=== PATIENT | female | born 1965 | race Caucasian/White ===

== ENCOUNTER → 2018-10-31 | Outpatient (CLI) | payer OTHER, SELFPAY | END | disposition home or self-care (01) | LOC: LABSPEC 15:37 | PROVIDERS: Referring Provider Otolaryngology; Visit Provider Otolaryngology | DX: J02.9 Acute pharyngitis, unspecified (principal) | CPT/HCPCS: 87070 ==

== ENCOUNTER → 2019-09-27 08:27 | Outpatient (CLI) | payer OTHER, SELFPAY ==
--- NOTE | 2019-09-27 08:40 | EKG12_ITS ---
Test Reason : PRE OP Blood Pressure : / mmHG Vent. Rate : 063 BPM Atrial Rate : 063 BPM P-R Int : 140 ms QRS Dur : 086 ms QT Int : 432 ms P-R-T Axes : -14 029 051 degrees QTc Int : 442 ms Normal sinus rhythm Normal ECG When compared with ECG of 11-JUL-2003 16:32, No significant change was found Confirmed by DANIKA GUO, ESTIVEN ([id number]), insurance examiner MARIAN CERDA ([id number]) on 10/01/2019 9:00:48 AM Referred By: Patricia Patel Confirmed By:ESTIVEN GARNICA MD
[2019-09-27 09:09] LABS: Absolute Lymphocyte Count 2.36 X10^3/uL (0.83-4.51); Absolute Neutrophil Count 4.4 X10^3/uL (2.0-7.7); Basophil# 0.05 X10^3/uL; Basophil% 0.7 % (0-1); Eosinophil# 0.18 X10^3/uL; Eosinophils% 2.4 % (0-5); Hematocrit 39.8 % (37-47); Hemoglobin 12.5 g/dL (12.0-15.0); Lymphocyte # 2.36 X10^3/ul (4.0); Lymphocyte % 31.4 % (19-41); Mean Corp Hgb Conc 31.4 g/dL (32-36); Mean Corpuscular Hgb 27.3 pg (27.0-32.0); Mean Corpuscular Volume 86.9 fL (81-99); Mean Platelet Vol. 11.5 fl (6.2-12.0); Monocyte# 0.46 X10^3/uL; Monocyte% 6.1 % (0-10); NRBC Flagged by Analyzer 0 % (0-5); Neutrophil # 4.44 X10^3/uL (2.7-7.7); Platelet Count 291 K/mm3 (150-450); RBC Distribution Width CV 13.1 % (11.6-14.6); Red Blood Count 4.58 M/mm3 (4.2-5.4); White Blood Count 7.5 K/mm3 (4.4-11.0)
[2019-09-27 09:43] LABS: Anion Gap 7 (5-15); BUN 17 mg/dL (7-18); Chloride 106 mmol/L (98-107); Creatinine, Serum 0.65 mg/dL (0.55-1.02); EST Glomerular Filtration Rate 100 mL/min (>60); Est Glom Filt Rate - Afr Amer 121 mL/min (>60); Glucose 101 mg/dL (74-106); Potassium 4.3 mmol/L (3.5-5.1); Sodium Level 138 mmol/L (136-145)
== END ==
PROVIDERS: Referring Provider Registered Nurse; Visit Provider Registered Nurse
DX: Z01.818 Encounter for other preprocedural examination (principal)
CPT/HCPCS: 36415; 80048; 85025; 93005

== ENCOUNTER → 2019-10-01 | Outpatient (CLI) | payer OTHER, SELFPAY | END | disposition home or self-care (01) | LOC: LABSPEC 11:38 | PROVIDERS: Referring Provider Specialist; Visit Provider Specialist | DX: Z11.59 Encounter for screening for other viral diseases (principal) | CPT/HCPCS: 87635; G2023; U0003 ==

== ENCOUNTER → 2021-03-04 15:19 | Outpatient (CLI) | payer OTHER, SELFPAY | PROVIDERS: Referring Provider Otolaryngology; Visit Provider Otolaryngology | DX: K12.1 Other forms of stomatitis (principal) | CPT/HCPCS: 87070 ==

== ENCOUNTER 2023-06-12 09:13 | Day surgery (SDC) | payer OTHER, SELFPAY ==
--- NOTE | 2023-06-06 13:32 | EKG12_ITS ---
Test Reason : PRE OP Blood Pressure : / mmHG Vent. Rate : 057 BPM Atrial Rate : 057 BPM P-R Int : 140 ms QRS Dur : 078 ms QT Int : 424 ms P-R-T Axes : 002 057 062 degrees QTc Int : 412 ms Sinus bradycardia Otherwise normal ECG Confirmed by Sang Mina ([id number]), tape editor CHERRIE ASH ([id number]) on 06/07/2023 8:08:18 AM Referred By: Chuy Teixeira Confirmed By:Sang Mina
[2023-06-06 14:27] LABS: Hematocrit 37.7 % (37-47); Hemoglobin 12.2 g/dL (12.0-15.0); Mean Corp Hgb Conc 32.4 g/dL (32-36); Mean Corpuscular Hgb 27.3 pg (27.0-32.0); Mean Corpuscular Volume 84.3 fL (81-99); Mean Platelet Vol. 11.4 fl (6.2-12.0); Platelet Count 312 K/mm3 (150-450); RBC Distribution Width CV 13.2 % (11.6-14.6); RBC Distribution Width SD 40.7 fl (35.1-43.9); Red Blood Count 4.47 M/mm3 (4.2-5.4); White Blood Count 7.5 K/mm3 (4.4-11.0)
[2023-06-06 14:42] LABS: Anion Gap 6 (5-15); BUN 18 mg/dL (7-18); BUN/Creat Ratio 25.9 RATIO (10-20); Calcium,Total 9.4 mg/dL (8.5-10.1); Chloride 107 mmol/L (98-107); EST Glomerular Filtration Rate 92 mL/min (>60); Est Glom Filt Rate - Afr Amer 111 mL/min (>60); Glucose 92 mg/dL (74-106); Potassium 4.2 mmol/L (3.5-5.1); Sodium Level 140 mmol/L (136-145)
[2023-06-12] VITALS (11 sets, daily range): BP systolic 104–159; BP diastolic 60–88; PULSE 49–68; RESP 14–16; TEMP 36.3–36.6; O2SAT 91–96; BMI 39.6
--- NOTE | 2023-06-12 09:35 | RAD_ITS ---
STUDY: INTRAOPERATIVE CHOLANGIOGRAM. REASON FOR EXAM: Female, 57 years old. Laparoscopic cholecystectomy. FLUOROSCOPY TIME (if supplied): ( 20.4 seconds ) minutes/seconds. 23.39 mGy. TECHNIQUE: An intraoperative cholangiogram was performed by the surgeon. Intraoperative fluoroscopic services were provided. COMPARISON: None. FINDINGS: The intra and extrahepatic biliary ducts are unremarkable. There is free flow of contrast into the duodenum. RAD/Cholangiogram/ O R,Initial IMPRESSION: Unremarkable intraoperative cholangiogram. Electronically Signed: Jose Chacon MD at 14:47 EST ,
--- OUTSIDE RECORDS SUMMARY | 2023-06-12 09:37 | XMS RPT_ITS | CCD ---
Author Name Unknown Address [address] [place] [address] Organization [facility] Care Team Providers Care Concrete Layer Name Role Phone MARLENI LAWRENCE MD Primary Care Physician MARLENI LAWRENCE MD Primary Care Unavailable AMRLENI LAWRENCE MD Attending Unavailable MARLENI LAWRENCE MD Primary Care Unavailable MARLENI LAWRENCE MD Attending Unavailable MARLENI LAWRENCE MD Primary Care Unavailable MARLENI LAWRENCE MD Attending Unavailable MARLENI LAWRENCE MD Attending Unavailable MARLENI LAWRENCE MD Primary Care Unavailable Allergies Allergy Classification Reported Allergen(s) Allergy Type Date of Onset Reaction(s) Facility (5 sources) Amoxicillin / Clavulanate; Translations: [amoxicillin-clav ulanate] Drug Allergy Other [facility] Medications Current Medications Medication Drug Class(es) Dates Sig (Normalized) Sig (Original) Ascorbic Acid (2 sources) Vitamin C Start: 02-21-2020 Vitamin C qDay, 0 Refill(s) Start Date: 02/21/20 Status: Ordered escitalopram 10 mg oral tablet (1 source) Serotonin Reuptake Inhibitor Start: 04-20-2021 escitalopram 10 mg oral tablet Dose : 10 mg = 1 tab(s), Oral, qDay, # 90 tab(s), 0 Refill(s), Pharmacy: [facility]/pharmacy #[id number], Generalized anxiety disorder, 172.7, cm, 04/20/21 8:44:00 EST, Height, kg, 04/20/21 8:44:00 EST, Dosing Weight Start Date: 04/20/21 Status: Ordered famotidine 40 mg oral tablet (5 sources) Histamine-2 Receptor Antagonist Start: 03-22-2023 famotidine 40 mg oral tablet Dose : 40 mg = 1 tab(s), Oral, qHS, 0 Refill(s) Start Date: 03/22/23 Status: Ordered Completed/Discontinued Medications Medication Drug Class(es) Dates Sig (Normalized) Sig (Original) albuterol MDI (90 mcg/inh) CFC free inhalation aerosol (1 source) Start: 04-14-2021 End: 05-14-2021 take 2 puff(s) by inhalation every four hours albuterol MDI (90 mcg/inh) CFC free inhalation aerosol 2 puff(s), Inhalation, q4h, ok to fill generic equivalent rescue inhaler, # 1 EA, 0 Refill(s), Pharmacy: [facility]/pharmacy #[id number], 172.7, cm, 02/09/21 16:38:00 EDT, Height, kg, 04/14/21 11:21:00 EST, Dosing Weight Start Date: 04/14/21 Stop Date: 05/14/21 Status: Ordered hydrOXYzine hydrochloride 50 mg oral tablet (2 sources) Antihistamine Start: 02-09-2021 End: 03-11-2021 hydrOXYzine hydrochloride 50 mg oral tablet Dose : 50 mg = 1 tab(s), Oral, QID, PRN as needed for anxiety, Do not drive, operate heavy machinery, or drink alcohol while on this medication. Okay to try half a tab when first starting medication., # 40 tab(s), 0 Refill(s), Pharmacy: [facility]/pharmacy #... Start Date: 02/09/21 Stop Date: 03/11/21 Status: Ordered tiZANidine 4 mg oral tablet (1 source) Central alpha-2 Adrenergic Agonist Start: 03-22-2023 End: 03-29-2023 tiZANidine 4 mg oral tablet Dose : 4 mg = 1 tab(s), Oral, qHS, # 7 tab(s), 0 Refill(s), Pharmacy: [facility]/pharmacy #[id number], Right flank pain, 171.5, cm, 03/22/23 17:25:00 EST, Height, kg, 03/22/23 17:25:00 EST, Dosing Weight Start Date: 03/22/23 Stop Date: 03/29/23 Status: Ordered Problems Problem Classification Problem Date Documented Da te Episodic/Chronic Abdominal pain (1 source) Right flank pain 03-22-2023 Episodic Anxiety disorders (5 sources) Generalized anxiety disorder 02-09-2021 Chronic Osteoarthritis (5 sources) Osteoarthritis of left hip joint 09-24-2019 Chronic Other lower respiratory disease (5 sources) Cough 03-06-2021 Episodic Other non-traumatic joint disorders (2 sources) Knee joint effusion 06-15-2022 Episodic Other non-traumatic joint disorders (2 sources) Knee pain 06-15-2022 Episodic Other skin disorders (3 sources) Swelling of lower leg 05-10-2022 Episodic Other upper respiratory infections (1 source) Sinusitis 07-14-2022 Chronic Other upper respiratory infections (13 sources) Posterior rhinorrhea; Translations: [Upper respiratory infection] 03-06-2021 Episodic Unclassified (5 sources) Suspected disease caused by 2019-nCoV 03-06-2021 Results Test Name Value Interpretation Reference Range Facil ity Encounters Encounter Date Encounter Type Care Provider Facility Start: 05-09-2023 End: 05-10-2023 ambulatory MARLENI LAWRENCE MD Facility:B Start: 05-09-2023 End: 05-09-2023 Patient encounter procedure MARLENI LAWRENCE MD [facility] Start: 04-03-2023 End: 04-04-2023 ambulatory MARLENI LAWRENCE MD Facility:B Start: 06-24-2022 End: 06-25-2022 ambulatory MARLENI LAWRENCE MD Facility:B Start: 06-24-2022 End: 06-24-2022 Patient encounter procedure MARLENI LAWRENCE MD [facility] Start: 05-23-2022 End: 05-24-2022 ambulatory MARLENI LAWRENCE MD Facility:B Start: 05-23-2022 End: 05-23-2022 Patient encounter procedure MARLENI LAWRENCE MD [facility] Start: 05-20-2021 End: 05-20-2021 Patient encounter procedure MARLENI LAWRENCE MD [facility] Start: 03-06-2021 End: 03-06-2021 Patient encounter procedure MARICEL M LUIS ARMANDO DO [facility] Procedures Date Procedure Procedure Detail Performing Clinician Oophorectomy MARICEL DURÁN DO Immunizations Immunization Date Immunization Notes Care Provider Fa cility 06-13-2013 tetanus toxoid, redu elisa diphtheria toxoid, and acellular pertussis vaccine, adsorbed MARICEL LUIS ARMANDO DO [facility] Payers Date Payer Category Payer Private Health Insurance [id number] 2023 Unknown [id number] 2022 Unknown [id number] 1965 Unknown [id number] [id number] 1965 Unknown [id number] [id number] [id number] 1965 Unknown [id number] [id number] [id number] 1965 Unknown [id number] [id number] [id number] Social History Date Type Detail Facility Start: 10-30-2018 Never smoked tobacco (f inding) [facility] Clinical Note 05-09-2023 Note Date & Type Note Facility 05-09-2023 Note ORIGINAL EXAMINATION: 05/09/2023 12:41 pm TECHNIQUE: Approximately 4.3 millicuries Tc99m Choletec was administered IV. Then, dynamic images of the abdomen were obtained in the anterior projection for 60 mins. Slow infusion of 2.4 mcg cholecystokinin was administered intravenously over 30 mins. Images were obtained in the anterior projection and regions of interest were drawn around the gallbladder and ejection fraction was calculated. COMPARISON: None HISTORY: Reason for Exam: Gallstones FINDINGS: Prompt, homogenous uptake by the liver is noted with normal appearance of radiotracer excretion into the biliary system. Clearance of blood pool activity appears appropriate. Gallbladder and small bowel are visualized in appropriate time. Gallbladder ejection fraction is 5%. Normal value is >35% for CCK protocol. IMPRESSION: Abnormal gallbladder ejection fraction of 5 %, could be seen with biliary dyskinesia, chronic cholecystitis, cystic duct syndrome or sphincter of Oddi spasm. Interpreted by: Antonette Francois MD Preliminary Report By: Antonette Francois MD Electronically signed By Antonette Francois MD Dictated Date: 05/09/2023 12:55:21 PM Prelim Date: 05/09/2023 12:56:32 PM Sign Date: 05/09/2023 12:56:32 PM Ordering Provider: MARLENI LAWRENCE [facility] Evaluation + Plan note 05-11-2021 Laboratory Note Date & Type Note Facility 05-11-2021 Evaluation + Plan note Future Scheduled TestsRespiratory ID Panel with COVID-19 by PCR 05/11/21 [facility] Evaluation + Plan note 03-06-2021 Note Date & Type Note Facility 03-06-2021 Evaluation + Plan note Diagnostic Tests PendingRespiratory ID Panel with COVID-19 by PCR 03/06/21 [facility] Evaluation + Plan note Note Date & Type Note Facility Evaluation + Plan note Future Appointments Appointment Date:07/01/2022 10:00:00 AM Scheduled Provider:MARLENI LAWRENCE MD Location:[facility] Appointment Type:PC OV Follow Up [facility] Hospital course Narrative Note Date & Type Note Facility Hospital course Narrative No data available for this section [facility] Hospital Discharge instructions Note Date & Type Note Facility Hospital Discharge instructions No data available for this section [facility] Progress note Note Date & Type Note Facility Progress note No data available for this section [facility] Summary Purpose Family History No Family History Records Found No data available for this section Advance Directives No Advanced Directives Records Found Additional Source Comments Care Team (unrecognized sect ion and content) Care Team Personnel Name: MARLENI LAWRENCE MD Position: P4 Physician - Primary Care Member Role: Primary Care Physician Address: Address: [address] [place] [address] Care Team Related Persons Name: ANABEL TAYLOR Care Team Personnel Name: MARLENI LAWRENCE MD Position: P4 Physician - Primary Care Member Role: Primary Care Physician Address: Address: [address] [place] [address] Care Team Related Persons Name: ANABEL TAYLOR INFORMATION SOURCE (unrecogn ized section and content) Patient Care team informatio n (unrecognized section and content) Care Team Personnel Name: MARLENI LAWRENCE MD Position: P4 Physician - Primary Care Member Role: Primary Care Physician Address: Address: [address] [place] [address] Care Team Related Persons Name: ANABEL TAYLOR FOR RECORDS PERTAINING TO PATIENTS WHO ARE OR HAVE BEEN ENROLLED IN A CHEMICAL DEPENDENCY/SUBSTANCEABUSE PROGRAM, SOME INFORMATION MAY BE OMITTED. This clinical summary was aggregated from multiple sources. Caution should be exercised in using it in the provision of clinical care. This summary normalizes information from multiple sources, and as a consequence, information in this document may materially change the coding, format and clinical context of patient data. In addition, data may be omitted in some cases. CLINICAL DECISIONS SHOULD BE BASED ON THE PRIMARY CLINICAL RECORDS. [facility] [employer] [facility]. provides no warranty or guarantee of the accuracy or completeness of information in this document.
[2023-06-12] MEDS: Lactated Ringers 1,000 ML 15 ML IV (09:41)
--- NOTE | 2023-06-12 09:54 | DCINST_ITS ---
Discharge Instructions Procedure General Surgery Diet Discharge Diet: Light diet - advance as tolerated (if you have questions about your diet instructions, please talk to you doctor.) Activity Discharge Activity: May Not Drive (for 3-5 days or while taking narcotic pain medicine.) May shower in (days): 1 Lifting Restrictions: 10 pounds Dressing / Incision Call your doctor if your incision/area has: Continuous Slow Oozing, Sudden Increased Bleeding, Increased Pain/ Swelling, Increased Redness and Foul Smelling Discharge Call your doctor if you observe: Fever of 101 or Higher Suture Line Care: Avoid Pulling/Pushing and Avoid Pinching/Bending Additional Dressing/Incision Instructions:: Change or remove dressing in 4 days. Leave steri-strips in place for 1 week. Follow Up Care Please Follow Up With: Chuy Teixeira MD When: Call [phone] to make an appointment to be seen in about 10 days. Test Results: Test results from this visit will be discussed in further detail at your follow- up appointment, if applicable. Discharge Plan Admission Attending Provider: Chuy Teixeira Primary Care Provider: Bala Nickerson Discharge Orders/Prescriptions Prescriptions: No Action fluticasone propionate [Allergy Relief (fluticasone)] 50 mcg/actuation spr ay,suspension 1 spray intranasal DAILY Rx Instructions: administer into each nostril cholecalciferol (vitamin D3) 25 mcg (1,000 unit) capsule 25 mcg PO DAILY multivitamin Tablet 1 tab PO DAILY pantoprazole 40 mg tablet,delayed release (DR/EC) 40 mg PO DAILY Referrals / Follow Up: Bala Nickerson MD [Primary Care Provider] - Disposition Disposition (needs filled in before D/C Order can be placed): Home, Self Care
--- NOTE | 2023-06-12 09:54 | HP.PCM_ITS ---
History and Physical Date of Admission: 06/12/23 Intake Visit Reasons: GALLBLADDER Chief Complaint: gallbladder Railroad Brakeman Required: No Is patient in pain?: No Allergies Penicillins Adverse Reaction (Severe, Verified 05/19/23 13:35) Rash Medications cholecalciferol (vitamin D3) 25 mcg (1,000 unit) capsule 25 mcg PO DAILY 05/19/23 [History Confirmed 05/19/23] famotidine 40 mg tablet mg PO 05/19/23 [History Confirmed 05/19/23] fluticasone propionate 50 mcg/actuation nasal spray,suspension (Allergy Relief (fluticasone)) 1 spray intranasal DAILY 05/19/23 [History Confirmed 05/19/23] multivitamin 1 tab PO DAILY 05/19/23 [History Confirmed 05/19/23] PFSH Surgical History (Updated 05/19/23 @ 13:34 by Genet Ulloa LPN) H/O bilateral oophorectomy Family History (Updated 05/19/23 @ 13:34 by Genet Ulloa LPN) Mother Gallbladder calculus HPI HPI HPI: 57-year-old female is being referred by Dr. Bala Nickerson for surgical consultation regarding a nonfunctioning gallbladder and a written copy my surgical consult and recommendations will be returned to him. We have been provided a report from [facility] dated May 09, 2023. The nuclear medicine scan based upon a history of gallstones. Ejection fraction is only 5%. This was felt to be an abnormal study. It is of additional note that she had a CT abdomen pelvis performed on April 03, 20[facility]. A calcified gallstone was noted. There is no acute evidence of cholecystitis. She is previously on August 09, 2022 had an unremarkable colonoscopy as well. Patient states her very initial episode just after Thanksgi was a pain in her back mid scapular area that radiated around to the right. She states that it lasted a couple days. She did have to take some wzlk-bdn-lolqnbr pain medicine. No fever no nausea. Has not recurred since. She has had had left hip surgery. She has not had any previous abdominal procedures. Family history is notable that her mother had gallbladder disease that was treated surgically by Dr. Lluvia CANTU Gastro Gastrointestinal: Yes diarrhea, Yes acid reflux and Yes gallbladder problem Neuro Neurologic: Yes numbness and Yes tingling Exam Const General: cooperative, healthy appearing, comfortable and no acute distress Orientation: alert and awake HENMT Head: normal to inspection Eyes General: appearance normal, both eyes and all related structures Neck Neck: normal visual inspection Chest Chest palpation & inspection: normal inspection of the chest Resp Effort & Inspection: normal respiratory effort Auscultation: clear to auscultation bilaterally Cardio Rate: regular rate Rhythm: regular rhythm GI Inspection: normal to inspection Palpation: soft and no hepatosplenomegaly Musc Cervical Spine: normal cervical lordosis Skin General: no rashes or lesions noted Neuro General: patient alert, patient awake and patient oriented x3 Extrem General: no calf tenderness Psych Appearance: grossly normal Assessment and Plan Assessment and Plan (1) Biliary dyskinesia: Status: Deleted Plan: Findings are most consistent with chronic cholecystitis cholelithiasis. I propose for the patient a laparoscopic ostectomy with selective cholangiography. I discussed technique, benefit, risk, alternatives. He has had an opportunity to ask and have questions answered. We will schedule procedure at her discretion. I very much appreciate the kind opportunity of assisting with her surgical care. Copy: Dr. Bala Teixeira M.D., F.A.C.S. (2) Cholelithiasis with chronic cholecystitis: Status: Chronic Qualifiers: Cholelithiasis location: gallbladder Biliary obstruction: without biliary obstruction Qualified Code(s): K80.10 - Calculus of gallbladder with chronic cholecystitis without obstruction I have examined the patient and the H&P has been reviewed. There are no clinical changes since date of exam. Chuy Teixeira M.D., F.A.C.S.
[2023-06-12] MEDS: Clindamycin 900 MG/50 ML BAG 75 MG IV (10:19)
--- NOTE | 2023-06-12 10:30 | GALL_PTH ---
PATHOLOGY RESULTS PATIENT: ARABELLA TAYLOR [place] [facility] [id number] AGE/SX: 57/F ROOM: RE06/12/[address]: Dr. Chuy Teixeira MD : 1965 BED: DIS: 06/12/2023 SPEC #: [id number] RECD: 06/12/23 13:43 STATUS: JEAN MARIE VILLALOBOS #: [id number] CRISTHIAN: 06/12/23 10:[address]: Chuy Teixeira DEPT: SURGICAL PATHOLOGY RECD BY: Nadiya Haider ENTERED: 06/12/23 13:43 SP TYPE: SHYLA REDMOND DR: Dr. Bala Nickerson MD Tissues: Gallbladder, NOS Procedures: Surgery Specimen Level III HEADER OPERATION: Laparoscopic cholecystectomy with IOC PRE-OP DIAGNOSIS: Biliary dyskinesia TISSUE SUBMITTED: Gallbladder MICROSCOPIC DIAGNOSIS Gallbladder, cholecystectomy: Mild chronic cholecystitis and cholelithiasis. SJ:cameron 06/13/2023 MICROSCOPIC DESCRIPTION Slides are reviewed. GROSS DESCRIPTION Received is one container labeled with the patient's name and designated gallbladder. The specimen consists of a gallbladder measuring 9.0 cm in length and up to 4.5 cm in diameter. The external surface is pink-gibson, smooth and glistening for the most part. Focally it is granular, hemorrhagic and contains cautery artifact. The gallbladder contains green-yellow mucoid bile and one irregular black stone measuring 2.0 cm in greatest dimension. The mucosa is bile-stained and without any mass lesions. The gallbladder wall measures up to 0.2 cm in thickness. Environmental Field Services Technician sections from the gallbladder and the cystic duct are submitted in one cassette. / SJ:cameron 06/12/2023 TC:3 [facility]: [id number]
--- NOTE | 2023-06-12 11:34 | OP.PCM_ITS ---
Report of Operation Date of Procedure: 06/12/23 Pre-Operative Diagnosis: Chronic cholecystitis cholelithiasis Post-Operative Diagnosis: Same Surgery/Procedure Performed:: Laparoscopic cholecystectomy with cholangiograms Description of Surgical Findings:: Timeout informed consent was obtained. 57-year-old female was taken to the operating placement table underwent general tracheal ovation esthesia. Clindamycin 9 mg were given intravenously. The abdomen was sterilely prepped and draped. 0.5% Marcaine was used as a local anesthetic. Throughout the procedure a total of 30 cc was used. Skin sites were pre anesthetized.. A supraumbilical vertical incision was created. Holding sutures of 0 Vicryl placed. Veress needle inserted. Saline drop test performed. The abdomen was insufflated with CO2 to a pressure of 10 mmHg pressure. 10 mm trocar inserted. 10 mm laparoscope inserted. No months trocar injuries. There were adhesions of small bowel in the infra umbilical midline area closer to the pelvis. It appeared that my entrance site was separate from that from a significant distance. 5 mm trocars were placed in the epigastric right upper quadrant and right lateral upper quadrant under direct visitation. Reverse Trendelenburg was employed. There is some mild adhesions of omentum to the gallbladder which were bluntly dissected free and secured with Hem-o-naye clips. The infundibular area of the gallbladder was dissected free until the critical view was achieved. Cystic duct anterior cystic artery and a posterior cystic artery identified. 2 Hem-o-naye clips were placed on the cystic artery proximally and 1 distally prior to transecting it. A Hem-o-naye clip was placed on the cystic duct incision made in the cystic duct and through a 14-gauge Angiocath cholangiogram catheter was inserted. Fluoroscopically controlled cholangiograms were obtained demonstrating normal ductal anatomy and free flow into the small bowel. The cholangiogram catheter was removed. An additional Hemoclip was placed on the cystic duct stump prior to transecting it. I branch of the posterior cystic artery going to the gallbladder was secured with Hem-o-naye clip prior to transecting it. The gallbladder was tediously dissected free from the liver bed. There was 1 area that suggested that it Dr. Cynthia Austin secured that with a Hem-o-naye clip. The gallbladder was then completely released. Hemostasis was achieved with electrocautery. The gallbladder was placed in a retrieval bag. The right upper quadrant was carefully irrigated and aspirated free of excess fluid. The gallbladder was exited at the umbilicus. The umbilical incision was then closed with a 0 Vicryl using a bbcnbu-re-zpisj grainy suture technique. This was visualized laparoscopically. [place] that I had good approximation. The abdomen was allowed to deflate of the CO2 through an antiviral valve. Skin edges were approximated opted for Monocryl subdermal stitches. Steri-Strips Telfa OpSite dressings applied. Sponge and instrument and needle counts were reported the surgeon to be correct. Specimen gallbladder. Drains none. Blood loss minimal. The patient was taken to recovery room in satisfactory this without further complication Chuy Teixeira M.D., F.A.C.S. Surgeon: Chuy Teixeira Type of Anesthesia: General and Local Anesthesiologist: Omer Paris
[2023-06-12] MEDS: Bupivacaine Mpf 0.5% 30 ML VIAL (11:35)
[2023-06-12] MEDS: HYDROcodone Bitartrate/Apap 5/325 Tablet PO (14:48)
== END 2023-06-12 15:47 | disposition home or self-care (01) ==
LOC: SDC 09:15 → AC 09:42
PROVIDERS: PCP Family Medicine; Referring Provider Surgery; Visit Provider Surgery
PROC: (CPT 47610; principal; 2023-06-12 10:10)
DX: K80.10 Calculus of gallbladder with chronic cholecystitis without obstruction (principal); K21.9 Gastro-esophageal reflux disease without esophagitis; Z79.899 Other long term (current) drug therapy
CPT/HCPCS: 47563; 00790; 36415; 74300; 76000; 80048; 85027; 88304; 93005; J7120; J2405

== ENCOUNTER → 2025-03-25 | Outpatient (CLI) | payer OTHER, SELFPAY | END | disposition home or self-care (01) | LOC: LABSPEC 15:17 | PROVIDERS: PCP Family Medicine; Referring Provider Otolaryngology; Visit Provider Otolaryngology | DX: J01.90 Acute sinusitis, unspecified (principal) | CPT/HCPCS: 87070; 87077; 87186 ==